=== PATIENT | female | born 1970 | race Caucasian/White ===

== ENCOUNTER 2018-12-26 11:05 | Outpatient (REF) | payer OTHER, SELFPAY ==
[2018-12-26 21:03] LABS: Anion Gap 10.6 mmol/L (3-11); BUN 15 mg/dL (7-18); CO2 27.4 mmol/L (21.0-32.0); CREATININE 0.78 mg/dL (0.55-1.02); Calcium 9.3 mg/dL (8.5-10.1); Chloride 103 mmol/L (98-107); Glucose 91 mg/dL (70-100); Potassium 3.6 mmol/L (3.5-5.1); Sodium 141 mmol/L (136-145)
== END 2018-12-26 11:25 ==
LOC: NCHCN 11:05
PROVIDERS: PCP Nurse Practitioner Family; Visit Provider Family Medicine
DX: I10 Essential (primary) hypertension (principal)
CPT/HCPCS: 80048

== ENCOUNTER 2019-06-10 19:14 | Outpatient (REF) | payer OTHER, SELFPAY ==
--- NOTE | 2019-06-10 16:15 | PAPFT_PTH ---
PATIENT: Cristina Robledo LOC: [facility]#:[id number] AGE/SX: 49/F ROOM: RE06/10/[address]: Renetta Jackman : 1970 BED: DIS: 06/10/2019 SPEC #: [id number] RECD: 06/11/19 12:45 STATUS: NALLELY REQ #: [id number] MANNY: 06/10/19 16:[address]: Renetta Jackman DEPT: [facility] Cytology RECD BY: Lorraine Barrios ENTERED: 06/11/19 12:45 SP TYPE: PAPFT OTHR DR: Reyna Banegas Tissues: 1 - CX/ENDOCX FOR PAP SMEARS Procedures: PAP THIN PREP/[facility] Screening HPV DNA PROBE Comments: [id number]
== END 2019-06-10 19:34 ==
LOC: NCHCN 19:14
PROVIDERS: PCP Nurse Practitioner Family; Visit Provider Family Medicine
DX: Z00.00 Encounter for general adult medical examination without abnormal findings (principal); Z12.4 Encounter for screening for malignant neoplasm of cervix; Z11.51 Encounter for screening for human papillomavirus (HPV)
CPT/HCPCS: 88142; 87624

== ENCOUNTER 2019-12-04 08:18 | Outpatient (REF) | payer OTHER, SELFPAY ==
[2019-12-04 21:29] LABS: ALT 32 U/L (14-59); AST 21 U/L (15-37); Albumin 4.2 g/dL (3.4-5.0); Alkaline Phosphatase 109 U/L (46-116); Anion Gap 8.8 mmol/L (3-11); BUN 11 mg/dL (7-18); Bilirubin, Total 1.4 mg/dL (0.2-1.0); CO2 29.2 mmol/L (21.0-32.0); CREATININE 0.85 mg/dL (0.55-1.02); Calcium 9.4 mg/dL (8.5-10.1); Chloride 103 mmol/L (98-107); Glucose 104 mg/dL (74-106); Potassium 3.5 mmol/L (3.5-5.1); Sodium 141 mmol/L (136-145)
[2019-12-04 21:46] LABS: Calculated LDL 117 mg/dL (<100); Cholesterol 183 mg/dL (<200); HDL Cholesterol 44 mg/dL (40-60); Triglyceride 114 mg/dL (<150)
== END 2019-12-04 08:38 ==
LOC: NCHCN 08:18
PROVIDERS: PCP Family Medicine; Visit Provider Family Medicine
DX: Z00.00 Encounter for general adult medical examination without abnormal findings (principal); E78.2 Mixed hyperlipidemia; F32.9 Major depressive disorder, single episode, unspecified; Z71.6 Tobacco abuse counseling
CPT/HCPCS: 80053; 80061

== ENCOUNTER 2020-12-02 13:27 | Outpatient (REF) | payer OTHER, SELFPAY ==
[2020-12-02 13:14] LABS: ALT 32 U/L (14-59); AST 16 U/L (15-37); Alkaline Phosphatase 119 U/L (46-116); Anion Gap 7.7 mmol/L (3-11); BUN 12 mg/dL (7-18); Bilirubin, Total 0.5 mg/dL (0.2-1.0); CO2 30.3 mmol/L (21.0-32.0); CREATININE 0.9 mg/dL (0.55-1.02); Calcium 9.1 mg/dL (8.5-10.1); Calculated LDL 88 mg/dL (<100); Chloride 105 mmol/L (98-107); Cholesterol 151 mg/dL (<200); Glucose 96 mg/dL (74-106); HDL Cholesterol 39 mg/dL (40-60); Sodium 143 mmol/L (136-145); Total Protein 7.5 g/dL (6.4-8.2); Triglyceride 120 mg/dL (<150)
[2020-12-02 13:17] LABS: Hemoglobin A1C 5.2 % (<5.7)
== END 2020-12-02 13:28 | disposition home or self-care (01) ==
LOC: NCHCN 13:27
PROVIDERS: PCP Family Medicine; Visit Provider Family Medicine
DX: Z00.00 Encounter for general adult medical examination without abnormal findings (principal); E78.2 Mixed hyperlipidemia; I10 Essential (primary) hypertension; Z13.1 Encounter for screening for diabetes mellitus
CPT/HCPCS: 80053; 80061; 83036

== ENCOUNTER 2022-01-12 16:42 | Outpatient (REF) | payer OTHER, SELFPAY | END 2022-01-12 16:43 | disposition home or self-care (01) | LOC: NCHCN 16:42 | PROVIDERS: PCP Family Medicine; Visit Provider Family Medicine | DX: R39.89 Other symptoms and signs involving the genitourinary system (principal) | CPT/HCPCS: 87086 ==

== ENCOUNTER 2023-05-21 16:25 | Outpatient (REF) | payer OTHER, SELFPAY ==
--- OUTSIDE RECORDS SUMMARY | 2023-05-21 16:27 | XMS_ITS | CCD ---
Author Name Unknown Address [address] [place] [address] [id number] Organization Unknown Address [address] [place] [address] [phone] Care Team Providers Care Track Hoe Operator Name Role Phone OSVALDO CALIX Attending Physician [phone] OSVALDO CALIX Rounding (Secondary) Physician [phone] Vital Signs Unknown or Not Available. Allergies Allergy Code Allergy Type Reaction Status MORPHINE 7052 Drug allergy ITCHING, BURNING Active Procedures Unknown or Not Available. History of Immunizations Unknown or Not Available. Problems Problem Code Start Date Resolved Date Status Humeral fracture [id number] 06/19/2022 Resolved Results Unknown or Not Available. Active Medications Medication Code Dose Units Frequency Route Modificatio n Start Date/Time Robaxin 500MG Oral Tablet 14281182104 2 TABLET THREE TIMES A DAY ORAL 06/19/2022 13:49 Prescription Detail TAKE 2 TABLET ORAL THREE TIMES A DAY oxyCODONE HCl 5MG Oral Capsule 2125462 1 CAPSULE NEEDED FOUR TIMES A DAY ORAL 10/06/2021 19:37 Prescription Detail TAKE 1 CAPSULE ORAL NEEDED FOUR TIMES A DAY hydroCHLOROthiazid e 25MG Oral Tablet 071820 25 MILLIGRAMS DAILY ORAL 05/03/2017 19:36 Prescription Detail TAKE 25 MILLIGRAMS ORAL DAILY traZODone hydrochloride 100MG Oral Tablet 503697 200 MILLIGRAMS BEDTIME ORAL 0 05/03/2017 19:36 Prescription Detail TAKE 200 MILLIGRAMS ORAL BEDTIME Medications Administered During Visit Unknown or Not Available. Encounters Encounter Diagnosis Diagnosis Code Start Date Unspecified fracture of shaf t of humerus, left arm, initial encounter for closed fracture [id number] 10/10/2021 Social History Smoking Status Code Start Date End Date Current every day smoker [id number] Patient Decision Aids Unknown or Not Available. Discharge Instructions You were admitted to [facility] on 10/10/2021 10:47 with a principal diagnosis of Unspecified fracture of shaft of humerus, left arm, initial encounter for closed fracture You were discharged from [facility] on 10/10/2021 00:00 Should you have any questions prior to discharge, please contact a member of your healthcare team. If you have left the hospital and have any questions, please contact your primary care physician. Chief Complaint and Reason For Visit Unknown or Not Available. Function Status Unknown or Not Available. Plan of Care Unknown or Not Available. Referral/Transition of Care Unknown or Not Available.
--- OUTSIDE RECORDS SUMMARY | 2023-05-21 16:27 | XMS_ITS | CCD ---
Author Name Unknown Address [address] [place] [address] [id number] Organization Unknown Address [address] [place] [address] [phone] Care Team Providers Care Children'S Service Supervisor Name Role Phone ANGELO CA Attending Physician [phone] Vital Signs Unknown or Not Available. Allergies Allergy Code Allergy Type Reaction Status MORPHINE 7052 Drug allergy ITCHING, BURNING Active Procedures Unknown or Not Available. History of Immunizations Unknown or Not Available. Problems Problem Code Start Date Resolved Date Status Humeral fracture [id number] 06/19/2022 Resolved Results MATTHIAS FRAIREX* - Grace ect Date/Time: 10/17/2021 10:04 Test Name Code Test Result Test Units Test Ref Rang e Tier- 80324-0 PRE-OP N/A SARS COV2 RNA: 20071-1 NEGATIVE N/A REFERENCE RANGE: NEGAT Active Medications Medication Code Dose Units Frequency Route Modificatio n Start Date/Time Robaxin 500MG Oral Tablet 27618102410 2 TABLET THREE TIMES A DAY ORAL 06/19/2022 13:49 Prescription Detail TAKE 2 TABLET ORAL THREE TIMES A DAY oxyCODONE HCl 5MG Oral Capsule 3080604 1 CAPSULE NEEDED FOUR TIMES A DAY ORAL 10/06/2021 19:37 Prescription Detail TAKE 1 CAPSULE ORAL NEEDED FOUR TIMES A DAY hydroCHLOROthiazid e 25MG Oral Tablet 984650 25 MILLIGRAMS DAILY ORAL 05/03/2017 19:36 Prescription Detail TAKE 25 MILLIGRAMS ORAL DAILY traZODone hydrochloride 100MG Oral Tablet 578770 200 MILLIGRAMS BEDTIME ORAL 0 05/03/2017 19:36 Prescription Detail TAKE 200 MILLIGRAMS ORAL BEDTIME Medications Administered During Visit Unknown or Not Available. Encounters Encounter Diagnosis Diagnosis Code Start Date Pre-surgery testing [id number] 10/17/2021 Social History Smoking Status Code Start Date End Date Current every day smoker [id number] Patient Decision Aids Unknown or Not Available. Discharge Instructions You were admitted to [facility] on 10/17/2021 05:47 with a principal diagnosis of Encounter for preprocedural laboratory examination You had the following tests done:MATTHIAS BLANDON* You were discharged from [facility] on 10/17/2021 05:47 Should you have any questions prior to [...]
--- OUTSIDE RECORDS SUMMARY | 2023-05-21 16:27 | XMS_ITS | CCD ---
Author Name Unknown Address [address] [place] [address] [phone] Organization Unknown Address [address] [place] [address] [id number] Care Team Providers Care Acute Care Nursing Assistant Name Role Phone KAI ORO Attending Physician [phone] KRYSTLE OFRDE Er Physician 2 [phone] MODESTO Ibarra Registered Nurse [phone] Vital Signs Vital Sign Value Unit Date/Time Recent/Initial ? BMI (Body Mass Index) 32.77 kg/m^2 06/19/2022 12: 49 Initial VS Weight Measured 185 lbs 06/19/2022 12:49 Ini tial VS Height 63 in 06/19/2022 12:49 Initial VS BSA (Body Surface Area) 1.93 m^2 06/19/2022 1 2:49 Initial VS BP Systolic 154 mmHg 06/19/2022 12:49 Initial VS BP Diastolic 89 mmHg 06/19/2022 12:49 Initia l VS Respiratory Rate 16 bpm 06/19/2022 12:49 In itial VS Heart Rate 75 bpm 06/19/2022 12:49 Initial VS O2 % BldC Oximetry 99 % 06/19/2022 12:49 Initial VS Body Temperature 37.1 degrees 06/19/2022 12:49 In itial VS BP Systolic 143 mmHg 06/19/2022 14:10 Most Re cent VS BP Diastolic 87 mmHg 06/19/2022 14:10 Most R ecent VS Respiratory Rate 16 bpm 06/19/2022 14:[address] Recent VS Heart Rate 65 bpm 06/19/2022 14:10 Most Rec ent VS O2 % BldC Oximetry 99 % 06/19/2022 14:10 Most Recent VS Body Temperature 36.4 degrees 06/19/2022 14:[address] Recent VS Allergies Allergy Code Allergy Type Reaction Status MORPHINE 7052 Drug allergy ITCHING, BURNING Active Procedures Unknown or Not Available. History of Immunizations Unknown or Not Available. Problems Problem Code Start Date Resolved Date Status Humeral fracture 97465999 06/19/2022 Resolved Results Unknown or Not Available. Active Medications Unknown or Not Available. Medications Administered During Visit Unknown or Not Available. Encounters Encounter Diagnosis Diagnosis Code Start Date Other chest pain R0789 06/19/2022 Social History Smoking Status Code Start Date End Date Current every day smoker 105483860 Patient Decision Aids Unknown or Not Available. Discharge Instructions You were admitted to [facility] on 06/19/2022 12:16 with a principal diagnosis of Other chest pain You were discharged from [facility] on 06/19/2022 14:10 Should you have any questions prior to discharge, please contact a member of your healthcare team. If you have left the hospital and have any questions, please contact your primary care physician. Chief Complaint and Reason For Visit Chief Complaint Date of Onset R SIDE RIB PAIN 06/19/2022 Function Status Unknown or Not Available. Plan of Care Unknown or Not Available. Referral/Transition of Care Unknown or Not Available.
--- OUTSIDE RECORDS SUMMARY | 2023-05-21 16:28 | XMS_ITS | CCD ---
Author Name Unknown Address [address] [place] [address] [id number] Organization Unknown Address [address] [place] [address] [phone] Care Team Providers Care Process Engineering Technician Name Role Phone ANGELO CA Attending Physician [phone] ANGELO CA Rounding (Secondary) Physician [phone] Vital Signs Unknown or Not Available. Allergies Allergy Code Allergy Type Reaction Status MORPHINE 7052 Drug allergy ITCHING, BURNING Active Procedures Unknown or Not Available. History of Immunizations Unknown or Not Available. Problems Problem Code Start Date Resolved Date Status Humeral fracture 47318960 06/19/2022 Resolved Results Unknown or Not Available. Active Medications Medication Code Dose Units Frequency Route Modificatio n Start Date/Time Robaxin 500MG Oral Tablet 58538061916 2 TABLET THREE TIMES A DAY ORAL 06/19/2022 13:49 Prescription Detail TAKE 2 TABLET ORAL THREE TIMES A DAY oxyCODONE HCl 5MG Oral Capsule 6010749 1 CAPSULE NEEDED FOUR TIMES A DAY ORAL 10/06/2021 19:37 Prescription Detail TAKE 1 CAPSULE ORAL NEEDED FOUR TIMES A DAY hydroCHLOROthiazid e 25MG Oral Tablet 381403 25 MILLIGRAMS DAILY ORAL 05/03/2017 19:36 Prescription Detail TAKE 25 MILLIGRAMS ORAL DAILY traZODone hydrochloride 100MG Oral Tablet 397289 200 MILLIGRAMS BEDTIME ORAL 0 05/03/2017 19:36 Prescription Detail TAKE 200 MILLIGRAMS ORAL BEDTIME Medications Administered During Visit Unknown or Not Available. Encounters Encounter Diagnosis Diagnosis Code Start Date Fracture of shaft of humerus [id number] Social History Smoking Status Code Start Date End Date Current every day smoker [id number] Patient Decision Aids Unknown or Not Available. Discharge Instructions You were admitted to [facility] on 12/05/2021 13:28 with a principal diagnosis of Unspecified fracture of shaft of humerus, left arm, subsequent encounter for fracture with routine healing You were discharged from [facility] on 12/05/2021 00:00 Should you have any questions prior [...]
--- OUTSIDE RECORDS SUMMARY | 2023-05-21 16:28 | XMS_ITS | CCD ---
Author Name Unknown Address [address] [place] [address] [id number] Organization Unknown Address [address] [place] [address] [phone] Care Team Providers Care Neonatal Intensive Care Nurse Name Role Phone ANGELO CA Attending Physician [phone] Vital Signs Unknown or Not Available. Allergies Allergy Code Allergy Type Reaction Status MORPHINE 7052 Drug allergy ITCHING, BURNING Active Procedures Unknown or Not Available. History of Immunizations Unknown or Not Available. Problems Problem Code Start Date Resolved Date Status Humeral fracture 65138725 06/19/2022 Resolved Results Unknown or Not Available. Active Medications Medication Code Dose Units Frequency Route Modificatio n Start Date/Time Robaxin 500MG Oral Tablet 95552174366 2 TABLET THREE TIMES A DAY ORAL 06/19/2022 13:49 Prescription Detail TAKE 2 TABLET ORAL THREE TIMES A DAY oxyCODONE HCl 5MG Oral Capsule 2167329 1 CAPSULE NEEDED FOUR TIMES A DAY ORAL 10/06/2021 19:37 Prescription Detail TAKE 1 CAPSULE ORAL NEEDED FOUR TIMES A DAY hydroCHLOROthiazid e 25MG Oral Tablet 223540 25 MILLIGRAMS DAILY ORAL 05/03/2017 19:36 Prescription Detail TAKE 25 MILLIGRAMS ORAL DAILY traZODone hydrochloride 100MG Oral Tablet 680583 200 MILLIGRAMS BEDTIME ORAL 0 05/03/2017 19:36 Prescription Detail TAKE 200 MILLIGRAMS ORAL BEDTIME Medications Administered During Visit Unknown or Not Available. Encounters Encounter Diagnosis Diagnosis Code Start Date Unspecified fracture of shaf t of humerus, left arm, initial encounter for closed fracture [id number] 10/19/2021 Social History Smoking Status Code Start Date End Date Current every day smoker [id number] Patient Decision Aids Unknown or Not Available. Discharge Instructions You were admitted to [facility] on 10/19/2021 01:11 with a principal diagnosis of Unspecified fracture of shaft of humerus, left arm, initial encounter for closed fracture You were discharged from [facility] on 10/19/2021 01:11 Should you have any questions prior to [...]
--- OUTSIDE RECORDS SUMMARY | 2023-05-21 16:28 | XMS_ITS | CCD ---
Author Name Unknown Address [address] [place] [address] [id number] Organization Unknown Address [address] [place] [address] [phone] Care Team Providers Care Creative Services Specialist Name Role Phone ANGELO CA Attending Physician [phone] Vital Signs Vital Sign Value Unit Date/Time Recent/Initial ? BP Systolic 152 mmHg 10/19/2021 17:10 Initial VS BP Diastolic 92 mmHg 10/19/2021 17:10 Initia l VS Respiratory Rate 21 bpm 10/19/2021 17:10 In itial VS Heart Rate 78 bpm 10/19/2021 17:10 Initial VS O2 % BldC Oximetry 97 % 10/19/2021 17:10 Initial VS Body Temperature 36 degrees 10/19/2021 17:10 In itial VS Allergies Allergy Code Allergy Type Reaction Status MORPHINE 7052 Drug allergy ITCHING, BURNING Active Procedures Procedure Code Procedure Type Date Open Treatment, Humeral Shaf t FX w/Plate/Screws, w/wo Cerclage 33556 CPT 10/19/2021 Injection Anesthetic Agent a nd/or Steroid; Brachial Plexus 40621 CPT 10/19/2021 Anesthesia, Open Proc On Hum erus & Elbow; Repair, Nonunion/Malunion, Humerus 46514 CPT 10/19/2021 History of Immunizations Unknown or Not Available. Problems Problem Code Start Date Resolved Date Status Humeral fracture 07655345 06/19/2022 Resolved Results Unknown or Not Available. Active Medications Medications Administered During Visit Medication Dose Units Frequency Route Date/Time of Last Dose LACTATED RINGERS 1000ML 1000 ML X1 10/19/2021 12:26 CeFAZolin IVPB FROZEN PREMIX : 2GM/100ML 2 GM X1 10/19/2021 14:2 7 ACETAMINOPHEN TABLET: 325MG 975 MG X1 PO 10/19/2021 12:26 MIDAZOLAM INJ SDV: 2MG/2ML 2 MG X1 IVP 10/19/2021 13:17 Encounters Encounter Diagnosis Diagnosis Code Start Date Unspecified fracture of shaf t of humerus, left arm, initial encounter for closed fracture [id number] 10/19/2021 Social History Smoking Status Code Start Date End Date Current every day smoker 452182519 Patient Decision Aids Unknown or Not Available. Discharge Instructions You were admitted to [facility] on 10/19/2021 11:33 with a principal diagnosis of Unspecified fracture of shaft of humerus, left arm, initial encounter for closed fracture You had the following procedures done:Open Treatment, Humeral Shaft FX w/Plate/Screws, w/wo CerclageInjection Anesthetic Agent and/or Steroid; Brachial PlexusAnesthesia, Open Proc On Humerus & Elbow; Repair, Nonunion/Malunion, Humerus You were discharged from [facility] on 10/19/2021 17:40 Should you have any questions prior to discharge, please contact a member of your healthcare team. If you have left the hospital and have any questions, please contact your primary care physician. Chief Complaint and Reason For Visit Chief Complaint Date of Onset ORIFF LEFT HUMEROUS SHAFT 120MIN OP Function Status Unknown or Not Available. Plan of Care Unknown or Not Available. Referral/Transition of Care Unknown or Not Available.
--- OUTSIDE RECORDS SUMMARY | 2023-05-21 16:28 | XMS_ITS | CCD ---
Author Name Unknown Address [address] [place] [address] [id number] Organization Unknown Address [address] [place] [address] [phone] Care Team Providers Care Steam Train Driver Name Role Phone OSVALDO CALIX Attending Physician [phone] OSVALDO CALIX Rounding (Secondary) Physician [phone] Vital Signs Unknown or Not Available. Allergies Allergy Code Allergy Type Reaction Status MORPHINE 7052 Drug allergy ITCHING, BURNING Active Procedures Unknown or Not Available. History of Immunizations Unknown or Not Available. Problems Problem Code Start Date Resolved Date Status Humeral fracture 53120522 06/19/2022 Resolved Results Unknown or Not Available. Active Medications Medication Code Dose Units Frequency Route Modificatio n Start Date/Time Robaxin 500MG Oral Tablet 59135469650 2 TABLET THREE TIMES A DAY ORAL 06/19/2022 13:49 Prescription Detail TAKE 2 TABLET ORAL THREE TIMES A DAY oxyCODONE HCl 5MG Oral Capsule 0799395 1 CAPSULE NEEDED FOUR TIMES A DAY ORAL 10/06/2021 19:37 Prescription Detail TAKE 1 CAPSULE ORAL NEEDED FOUR TIMES A DAY hydroCHLOROthiazid e 25MG Oral Tablet 525395 25 MILLIGRAMS DAILY ORAL 05/03/2017 19:36 Prescription Detail TAKE 25 MILLIGRAMS ORAL DAILY traZODone hydrochloride 100MG Oral Tablet 588327 200 MILLIGRAMS BEDTIME ORAL 0 05/03/2017 19:36 Prescription Detail TAKE 200 MILLIGRAMS ORAL BEDTIME Medications Administered During Visit Unknown or Not Available. Encounters Encounter Diagnosis Diagnosis Code Start Date Fracture of shaft of humerus 31046756 Social History Smoking Status Code Start Date End Date Current every day smoker 253810195 Patient Decision Aids Unknown or Not Available. Discharge Instructions You were admitted to [facility] on 11/03/2021 09:38 with a principal diagnosis of Unspecified fracture of shaft of humerus, left arm, subsequent encounter for fracture with routine healing You were discharged from [facility] on 11/03/2021 00:00 Should you have any questions prior [...]
--- OUTSIDE RECORDS SUMMARY | 2023-05-21 16:29 | XMS_ITS | CCD ---
Author Name Unknown Address [address] [place] [address] [id number] Organization Unknown Address [address] [place] [address] [phone] Care Team Providers Care Fruit Receiver Name Role Phone OSVALDO CALIX Attending Physician [phone] OSVALDO CALIX Rounding (Secondary) Physician [phone] Vital Signs Unknown or Not Available. Allergies Allergy Code Allergy Type Reaction Status MORPHINE 7052 Drug allergy ITCHING, BURNING Active Procedures Unknown or Not Available. History of Immunizations Unknown or Not Available. Problems Problem Code Start Date Resolved Date Status Humeral fracture 03035366 06/19/2022 Resolved Results Unknown or Not Available. Active Medications Medication Code Dose Units Frequency Route Modificatio n Start Date/Time Robaxin 500MG Oral Tablet 20121914490 2 TABLET THREE TIMES A DAY ORAL 06/19/2022 13:49 Prescription Detail TAKE 2 TABLET ORAL THREE TIMES A DAY oxyCODONE HCl 5MG Oral Capsule 1809113 1 CAPSULE NEEDED FOUR TIMES A DAY ORAL 10/06/2021 19:37 Prescription Detail TAKE 1 CAPSULE ORAL NEEDED FOUR TIMES A DAY hydroCHLOROthiazid e 25MG Oral Tablet 350290 25 MILLIGRAMS DAILY ORAL 05/03/2017 19:36 Prescription Detail TAKE 25 MILLIGRAMS ORAL DAILY traZODone hydrochloride 100MG Oral Tablet 173333 200 MILLIGRAMS BEDTIME ORAL 0 05/03/2017 19:36 Prescription Detail TAKE 200 MILLIGRAMS ORAL BEDTIME Medications Administered During Visit Unknown or Not Available. Encounters Encounter Diagnosis Diagnosis Code Start Date Fracture of shaft of humerus 48276866 Social History Smoking Status Code Start Date End Date Current every day smoker 123267953 Patient Decision Aids Unknown or Not Available. Discharge Instructions You were admitted to [facility] on 01/23/2022 11:46 with a principal diagnosis of Unspecified fracture of shaft of humerus, left arm, subsequent encounter for fracture with routine healing You were discharged from [facility] on 01/23/2022 00:00 Should you have any questions prior [...]
[2023-05-21 21:18] LABS: Calculated LDL 101 mg/dL (<100); Cholesterol 167 mg/dL (<200); HDL Cholesterol 48 mg/dL (40-60); TSH 0.11 uIU/mL (0.36-3.74); Triglyceride 93 mg/dL (<150)
[2023-05-21 21:21] LABS: Hemoglobin A1C 5.2 % (<5.7)
== END 2023-05-21 16:26 | disposition home or self-care (01) ==
LOC: NCHCN 16:25
PROVIDERS: PCP Family Medicine; Visit Provider Family Medicine
DX: E78.2 Mixed hyperlipidemia (principal); R73.03 Prediabetes; E05.90 Thyrotoxicosis, unspecified without thyrotoxic crisis or storm
CPT/HCPCS: 80061; 83036; 84443

== ENCOUNTER 2023-09-03 14:58 | Outpatient (REF) | payer OTHER, SELFPAY ==
[2023-09-03 22:36] LABS: FREE T4 0.85 ng/dL (0.76-1.46)
[2023-09-04 18:14] LABS: T3, Total 148 ng/dL (97-169)
== END 2023-09-03 14:59 | disposition home or self-care (01) ==
LOC: NCHCN 14:58
PROVIDERS: PCP Family Medicine; Visit Provider Family Medicine
DX: E05.90 Thyrotoxicosis, unspecified without thyrotoxic crisis or storm (principal)
CPT/HCPCS: 84439; 84443; 84480

== ENCOUNTER 2024-06-29 18:54 | Outpatient (REF) | payer OTHER, SELFPAY ==
--- NOTE | 2024-06-29 15:30 | PAPFT_PTH ---
PATIENT: Cristina Robledo LOC: [facility]#:[id number] AGE/SX: 54/F ROOM: RE06/29/[address]: Renetta Jackman : 1970 BED: DIS: 06/29/2024 SPEC #: [id number] RECD: 06/30/24 12:54 STATUS: NALLELY REIngrid #: [id number] MANNY: 06/29/24 15:[address]: Renetta Jackman DEPT: [facility] Cytology RECD BY: Lorraine Barrios Tissues: 1 - CX/ENDOCX FOR PAP SMEARS Procedures: PAP THIN PREP/[facility]VM Screening Comments: [id number]
== END 2024-06-29 18:55 | disposition home or self-care (01) ==
LOC: NCHCN 18:54
PROVIDERS: PCP Family Medicine; Visit Provider Family Medicine
DX: Z00.00 Encounter for general adult medical examination without abnormal findings (principal); Z12.4 Encounter for screening for malignant neoplasm of cervix
CPT/HCPCS: 88142